=== PATIENT | female | born 1975 | race American Indian/Alaskan Native ===

== ENCOUNTER 2019-01-07 23:39 | Emergency (ER) | payer OTHER ==
[2019-01-07 23:44] VITALS: BP 137/94
--- NOTE | 2019-01-08 01:00 | Emergency Department Report ---
ED ENT HPI - General Chief complaint: Sore Throat Stated complaint: SORE THOART Time Seen by Provider: 01/07/19 23:51 Source: patient Mode of arrival: Ambulatory Limitations: No Limitations - History of Present Illness Initial comments: Patient is a 43-year-old female who's had a sore throat for approximately 3 weeks. Patient states started with some sinus irritation and postnasal drip but now she is having difficulty swallowing secondary to pain. Patient does have a dry cough as well. Patient states when she swallows pain is 6 out of 10 in severity. Denies any nausea vomiting diarrhea next business at this time. Severity: moderate Severity scale (0 -10): 6 Quality: burning Consistency: constant Improves with: none Worsens with: swallowing, eating - Related Data Previous Rx's Medication Instructions Recorded Last Taken Type Azithromycin [Zithromax Z-YOVANNY] 250 mg PO DAILY #6 tablet 01/08/19 Unknown Rx HYDROcodone/ACETAMINOPHEN 15 ml PO Q6H PRN #150 solution 01/08/19 Unknown Rx [Hydrocodon-Acetamin 7.5-325/15] prednisoLONE [Prednisolone] 45 mg PO DAILY 5 Days solution 01/08/19 Unknown Rx Allergies Allergy/AdvReac Type Severity Reaction Status Date / Time Penicillins Allergy Swelling Verified 01/07/19 23:47 ED Dental HPI - General Chief complaint: Sore Throat Stated complaint: SORE THOART Time Seen by Provider: 01/07/19 23:51 Source: patient Mode of arrival: Ambulatory Limitations: No Limitations - Related Data Previous Rx's Medication Instructions Recorded Last Taken Type Azithromycin [Zithromax Z-YOVANNY] 250 mg PO DAILY #6 tablet 01/08/19 Unknown Rx HYDROcodone/ACETAMINOPHEN 15 ml PO Q6H PRN #150 solution 01/08/19 Unknown Rx [Hydrocodon-Acetamin 7.5-325/15] prednisoLONE [Prednisolone] 45 mg PO DAILY 5 Days solution 01/08/19 Unknown Rx Allergies Allergy/AdvReac Type Severity Reaction Status Date / Time Penicillins Allergy Swelling Verified 01/07/19 23:47 ED Review of Systems ROS: Stated complaint: SORE THOART Other details as noted in HPI Comment: All other systems reviewed and negative ED Past Medical Hx - Past Medical History Previous Medical History?: No - Surgical History Past Surgical History?: Yes Hx Cholecystectomy: Yes - Social History Smoking Status: Current Every Day Smoker Substance Use Type: None - Medications Home Medications: Home Medications Medication Instructions Recorded Confirmed Last Taken Type Azithromycin [Zithromax Z-YOVANNY] 250 mg PO DAILY #6 tablet 01/08/19 Unknown Rx HYDROcodone/ACETAMINOPHEN 15 ml PO Q6H PRN #150 solution 01/08/19 Unknown Rx [Hydrocodon-Acetamin 7.5-325/15] prednisoLONE [Prednisolone] 45 mg PO DAILY 5 Days solution 01/08/19 Unknown Rx ED Physical Exam - General Limitations: No Limitations General appearance: alert, in no apparent distress - Head Head exam: Present: atraumatic, normocephalic - Eye Eye exam: Present: normal appearance - ENT ENT exam: Present: mucous membranes moist - Expanded ENT Exam Expanded Mouth exam: Present: normal external inspection, tongue normal. Absent: drooling, trismus, muffled voice, tongue elevation Throat exam: Positive: tonsillar erythema. Negative: tonsillomegaly, tonsillar exudate - Neck Neck exam: Present: normal inspection. Absent: lymphadenopathy - Respiratory Respiratory exam: Present: normal lung sounds bilaterally. Absent: respiratory distress, wheezes, rales, rhonchi - Cardiovascular Cardiovascular Exam: Present: regular rate, normal rhythm, normal heart sounds. Absent: systolic murmur, diastolic murmur, rubs, gallop - GI/Abdominal GI/Abdominal exam: Present: soft, normal bowel sounds. Absent: distended, tenderness, guarding, rebound - Extremities Exam Extremities exam: Present: normal inspection - Back Exam Back exam: Present: normal inspection - Neurological Exam Neurological exam: Present: alert, oriented X3 - Psychiatric Psychiatric exam: Present: normal affect, normal mood - Skin Skin exam: Present: warm, dry, intact, normal color. Absent: rash ED Course Vital Signs 01/07/19 23:43 Temperature 98.4 F Pulse Rate 87 Respiratory 18 Rate Blood Pressure 137/94 O2 Sat by Pulse 96 Oximetry ED Medical Decision Making - Lab Data Lab Results 01/08/19 Range/Units 00:05 Group A Strep Rapid Negative (Negative) - Medical Decision Making Because of the duration of the patient's symptoms patient will be placed on a Z- Yovanny. Strep test was negative but would like to cover for mycoplasma and other minor bacteria that may be causing her symptoms. ear nose and throat follow-up is been given as well. Patient given meds for symptomatic relief. Critical care attestation.: If time is entered above; I have spent that time in minutes in the direct care of this critically ill patient, excluding procedure time. ED Disposition Clinical Impression: Pharyngitis Qualifiers: Pharyngitis/tonsillitis etiology: unspecified etiology Qualified Code(s): J02.9 - Acute pharyngitis, unspecified Upper respiratory infection Qualifiers: URI type: unspecified URI Qualified Code(s): J06.9 - Acute upper respiratory infection, unspecified Disposition: DC- TO HOME OR SELFCARE Is pt being admited?: No Does the pt Need Aspirin: No Condition: Stable Instructions: Pharyngitis (ED) Referrals: KAREN SANCHEZ MD [Referring] - 3-5 Days Time of Disposition: 01:03
== END 2019-01-08 00:35 | disposition home or self-care (01) ==
LOC: ED 23:39
DX: J02.9 Acute pharyngitis, unspecified (principal); J06.9 Acute upper respiratory infection, unspecified; F17.200 Nicotine dependence, unspecified, uncomplicated
CPT/HCPCS: 87116; 87430